=== PATIENT | female | born 2000 | race Caucasian/White ===

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

== ENCOUNTER 2024-04-06 14:34 | Emergency (ER) | payer OTHER ==
[~2024-04-06] VITALS: Ht 157.4 cm; Wt 104.8 kg
[~2024-04-06 14:34] MED LIST changes: +BENADRYL ALLERG25 M5 PO; +ELIMITE 5%60 GM T
[2024-04-06] MEDS ORDERED: Ondansetron4 MG PO (14:44)
[2024-04-06] MEDS ORDERED: PENICILLIN VK500 MG PO (16:06)
[2024-04-06] MEDS ORDERED: PENICILLIN V POTASSIUM 500 MG TAB PO ONE (16:10)
== END 2024-04-06 16:31 | disposition home or self-care (01) ==
LOC: ED 14:34
DX: O99.612 Diseases of the digestive system complicating pregnancy, second trimester (principal); K04.7 Periapical abscess without sinus; O98.512 Other viral diseases complicating pregnancy, second trimester; B34.9 Viral infection, unspecified; R19.7 Diarrhea, unspecified; Z79.899 Other long term (current) drug therapy; Z20.822 Contact with and (suspected) exposure to COVID-19; Z3A.20 20 weeks gestation of pregnancy

== ENCOUNTER 2024-06-05 02:12 | Emergency (ER) | payer OTHER ==
[~2024-06-05 02:12] MED LIST changes: +Ondansetron4 MG PO; +PENICILLIN VK500 MG PO
[2024-06-05] MEDS ORDERED: PENICILLIN V POTASSIUM 500 MG TAB PO ONE (02:40)
[2024-06-05] MEDS ORDERED: PENICILLIN VK500 MG PO (02:47)
[2024-06-05] MEDS ORDERED: OMNICEF300 MG PO (03:04)
[2024-06-05] MEDS ORDERED: CEFDINIR 300 MG CAP PO ONE (03:05)
[2024-06-05] MEDS ORDERED: ACETAMINOPHEN 325 MG TAB PO ONE (03:10)
== END 2024-06-05 03:29 | disposition home or self-care (01) ==
LOC: ED 02:12
DX: K04.7 Periapical abscess without sinus (principal); K02.9 Dental caries, unspecified; J45.909 Unspecified asthma, uncomplicated; F90.9 Attention-deficit hyperactivity disorder, unspecified type; Z88.0 Allergy status to penicillin

== ENCOUNTER 2024-06-06 | Emergency (ER) | payer OTHER ==
[~2024-06-06] VITALS: Ht 157.5 cm; Wt 105.2 kg
[~2024-06-06] MED LIST changes: +OMNICEF300 MG PO
[2024-06-06 00:32] LABS: BILIRUBIN Negative (Negative); BLOOD Negative (Negative); CLARITY Clear (Clear); COLOR Yellow (Yellow); GLUCOSE Negative (Negative); KETONE Negative (Negative); LEUKO ESTERASE Trace (Negative); NITRITE Negative (Negative); PH 5.5 (4.5-8.0); SPECIFIC GRAVITY 1.025 (1.001-1.030)
[2024-06-06 00:33] LABS: BASO % 0.3 % (0.0-1.0); EOS % 0.1 % (1.0-4.0); HEMATOCRIT 34.3 % (37.0-47.0); MEAN CELL VOLUME 88.4 fl (81.0-99.0); MEAN CORPUSCULAR HGB 29.1 pg (27.0-31.0); MEAN CORPUSCULAR HGB CONC 32.9 g/dl (33.0-37.0); MONO # 1.1 10*3/uL (0.1-1.0); MONO % 10.3 % (3.0-9.0); NEUT # 8.6 10*3/uL (2.3-7.9); NEUT % 80.7 % (47.0-73.0); PLATELET COUNT AUTOMATED 284 10*3/uL (130-400); RED BLOOD COUNT 3.88 10*6/uL (4.10-5.10); RED CELL DISTRI WIDTH 14.1 % (0-14.5); WHITE BLOOD COUNT 10.6 10*3/uL (4.8-10.8)
[2024-06-06 00:38] LABS: BACTERIA 1+; EPITHELIAL CELLS 16-20; RBC 0-2 rbc/hpf (0-2)
[2024-06-06 00:39] LABS: MUCOUS TRACE
[2024-06-06 01:15] LABS: CHLORIDE 103 mmol/L (98-107); POTASSIUM 3.4 mmol/L (3.4-5.1)
[2024-06-06 01:17] LABS: BUN < 5 mg/dl (9-23)
== END 2024-06-06 01:54 | disposition home or self-care (01) ==
LOC: ED
PROVIDERS: Internal Medicine
DX: O99.612 Diseases of the digestive system complicating pregnancy, second trimester (principal); K04.7 Periapical abscess without sinus; K02.9 Dental caries, unspecified; J45.909 Unspecified asthma, uncomplicated; F90.9 Attention-deficit hyperactivity disorder, unspecified type; R10.30 Lower abdominal pain, unspecified; R10.2 Pelvic and perineal pain; Z3A.25 25 weeks gestation of pregnancy; Z88.0 Allergy status to penicillin

== ENCOUNTER 2025-03-08 20:43 | Emergency (ER) | payer OTHER ==
[2025-03-08] MEDS ORDERED: Ondansetron Hydrochloride 4 MG/2 ML VIAL IV ONE (21:15)
[2025-03-08] MEDS ORDERED: SODIUM CHLORIDE 0.9% 1,000 ML IV ONE (21:15)
[2025-03-08 21:32] LABS: BASO # 0.1 10*3/uL (0.0-0.1); BASO % 0.5 % (0.0-1.0); EOS # 0.1 10*3/uL (0.0-0.4); EOS % 0.9 % (1.0-4.0); MEAN CELL VOLUME 88.2 fl (81.0-99.0); MEAN CORPUSCULAR HGB 28.9 pg (27.0-31.0); MEAN PLATELET VOLUME 10.8 fl (9.6-12.3); MONO # 0.7 10*3/uL (0.1-1.0); MONO % 7.9 % (3.0-9.0); NEUT # 5.3 10*3/uL (2.3-7.9); NEUT % 58.3 % (47.0-73.0); NUCLEATED RED BLOOD CELL 0.0 % (0.0-0.0); NUCLEATED RED BLOOD CELL 0.0 10*3/uL (0.0-0.0); PLATELET COUNT AUTOMATED 311 10*3/uL (130-400); RED CELL DISTRI WIDTH 14.2 % (0-14.5)
[2025-03-08 21:53] LABS: BUN 8 mg/dl (9-23); SGPT/ALT 13 U/L (5-49)
[2025-03-08] MEDS ORDERED: MIRALAX POWDER17 G1 PO (22:04)
[2025-03-08] MEDS ORDERED: Ondansetron4 MG PO (22:04)
[2025-03-08] MEDS ORDERED: MAGNESIUM CITRATE 296 ML BOT PO ONE (22:05)
== END 2025-03-08 22:06 | disposition home or self-care (01) ==
LOC: ED 20:43
PROVIDERS: Nurse Practitioner Family
DX: K59.00 Constipation, unspecified (principal); J45.909 Unspecified asthma, uncomplicated; Z88.0 Allergy status to penicillin